=== PATIENT | female | born 1975 | race Caucasian/White ===

== ENCOUNTER 2019-12-20 16:09 | Emergency (ER) | payer OTHER ==
[2019-12-20] MEDS ORDERED: Adacel (T-DAP) 0.5 ML SYRINGE ONE (16:35)
== END 2019-12-20 17:00 | disposition home or self-care (01) ==
LOC: BURERS 16:09
DX: S61.411A Laceration without foreign body of right hand, initial encounter (principal); Z23 Encounter for immunization; W25.XXXA Contact with sharp glass, initial encounter
CPT/HCPCS: 12001; 90471; 90715